=== PATIENT | male | born 2000 | race Caucasian/White ===

== ENCOUNTER 2024-07-30 06:47 | Emergency (ER) | payer BC, SELFPAY ==
[2024-07-30 06:54] VITALS: BP 154/84; PULSE 95; RESP 20; TEMP 36.7; O2SAT 99; BMI 28.0
[2024-07-30] MEDS: ACETAMINOPHEN 500 MG TABLET 1000 MG PO (07:17)
--- NOTE | 2024-07-30 07:46 | ED_ITS ---
HPI - General Adult General Date Seen: 07/30/24 Chief complaint: Ear/Nose/Throat Problem Stated complaint: right ear pain Time Seen by Provider: 07/30/24 06:59 Source: patient Mode of arrival: ambulatory Limitations: no limitations History of Present Illness HPI narrative: Patient is a 24-year-old with right ear pain which started last night. Last week he had a cold most of the symptoms are improving but he remains congested and now has ear pain which she says is pretty significant. No fevers. No other complaints. No allergies or medical history. Related Data Home Medications ?Medication ?Instructions ?Recorded ?Confirmed No Known Home Medications 07/30/24 07/30/24 Allergies Allergy/AdvReac Type Severity Reaction Status Date / Time No Known Drug Allergies Allergy Verified 07/30/24 06:56 [facility] Medical History (Updated 07/30/24 @ 07:06 by Genna Juarez MD) No significant past medical history Surgical History (Updated 07/30/24 @ 06:57 by Rainer Grimes RN) No significant past surgical history Social History Smoking Status: Never smoker Second hand tobacco smoke exposure: No How often do you have a drink containing alcohol: never AUDIT-C Alcohol total score: 0 Non-prescribed substance use: denies use Exam Narrative: Exam Narrative: Vital signs reviewed In general, alert, nontoxic in man. He sounds congested. Head: Normocephalic, atraumatic. Knew it eyes: Sclera clear. ENT: Bilateral TMs are erythematous, right is dull and bulging. Throat is normal. Nares congested. Neck: Supple, no adenopathy. Heart: Regular rate and rhythm. Lungs: Clear, no increased breathing. Const: Vital Signs, click to edit/add: Vital Signs - 24 hr 07/30/24 06:54 Temperature 98.0 F Pulse Rate [Right Pulse Oximeter] 95 Respiratory Rate 20 Blood Pressure [Ri ght Upper Arm] 154/84 H Pulse Oximetry 99 Oxygen Delivery Me thod Room Air Documenting provider has reviewed patient's vital signs: yes Course Course ED Course: Bilateral otitis media, worse on the right. Discussed these are often viral, but prescribed amoxicillin, reviewed that for the 1st couple of days he will need to manage pain with ibuprofen and/or Tylenol, given 1000 mg of Tylenol here and he can take some ibuprofen at home. If no improvement despite treatment over the next few days he should be seen again, return any time for worsening. Vital Signs Vital signs: Initial Vital Signs Temperature 98.0 F 07/30/24 06:54 Temperature Source Temporal Artery Scan 07/30/24 06:54 Pulse Rate 95 07/30/24 06:54 Respiratory Rate 20 07/30/24 06:54 Blood Pressure 154/84 H 07/30/24 06:54 Blood Pressure Mean 107 H 07/30/24 06:54 Blood Pressure Position Sitting 07/30/24 06:54 Pulse Oximetry 99 07/30/24 06:54 Oxygen Delivery Method Room Air 07/30/24 06:54 Vital Signs Temperature 98.0 F 07/30/24 06:54 Pulse Rate 95 07/30/24 06:54 Respiratory Rate 20 07/30/24 06:54 Blood Pressure 154/84 H 07/30/24 06:54 Pulse Oximetry 99 07/30/24 06:54 Oxygen Delivery Method Room Air 07/30/24 06:54 Temperature 98.0 F 07/30/24 06:54 Pulse Rate 95 07/30/24 06:54 Respiratory Rate 20 07/30/24 06:54 Blood Pressure 154/84 H 07/30/24 06:54 Pulse Oximetry 99 07/30/24 06:54 Oxygen Delivery Method Room Air 07/30/24 06:54 Medications Administered Medications: Discontinued Medications Generic Name Dose Route Start Last Admin Trade Name Freq PRN Reason Stop Dose Admin Acetaminophen 1,000 mg 07/30/24 07:06 07/30/24 07:17 Acetaminophen 500 Mg Tablet PO 07/30/24 07:07 1,000 mg ONCE ONE Administration Discharge Plan Discharge Clinical Impression: Otitis media Qualifiers: Otitis media type: suppurative Chronicity: acute Laterality: bilateral Recurrence: non-recurrent Spontaneous tympanic membrane rupture: without spontaneous rupture Qualified Code(s): H66.003 - Acute suppurative otitis media without spontaneous rupture of ear drum, bilateral Patient Disposition: Home, Self-Care Condition: Stable Instructions: Ear Infection (ED) Additional Instructions: Antibiotic as prescribed. Ibuprofen 200 mg plus Tylenol 1000 mg 3 times daily as needed over the next couple of days for pain. If no improvement over the next 2-3 days despite treatment, see your clinic or return for re-evaluation. Return any time for significant worsening. Prescriptions: No Action No Known Home Medications Stand Alone Forms: [employer] Info Instructions
== END 2024-07-30 07:33 | disposition home or self-care (01) ==
PROVIDERS: Emergency Provider Emergency Medicine
DX: H66.003 Acute suppurative otitis media without spontaneous rupture of ear drum, bilateral (principal)
CPT/HCPCS: 99283; A9270